=== PATIENT | female | born 1945 | race Caucasian/White ===

== ENCOUNTER 2018-08-25 11:11 | Inpatient (IN) | payer MEDICARE ==
[2018-08-25] MEDS ORDERED: Ondansetron 4 MG/2 ML SDV IVPUSH ONE (12:08)
[2018-08-25] MEDS ORDERED: Sodium Chloride 0.9% 1,000 ML IV SCH ×3 (12:15→18:02)
[2018-08-25] MEDS ORDERED: cefTRIAXone 1 GM in Sodium Chloride 0.9% 50 ML IV ONE ×2 (13:09→13:30)
[2018-08-25] MEDS ORDERED: Sodium Chloride 0.9% 10 ML Syringe FLUSH ONE (13:11)
[2018-08-25] MEDS ORDERED: Sodium Chloride 0.9% 100 ML IV ONE (13:11)
--- NOTE | 2018-08-25 13:12 | EDM.PDOC ---
ED HPI GENERAL MEDICAL PROBLEM - General Chief Complaint: Gastrointestinal Problem Stated Complaint: VOMITING, POST SURGERY Time Seen by Provider: 08/25/18 11:40 Source of Information: Reports: Patient History Limitations: Reports: No Limitations - History of Present Illness INITIAL COMMENTS - FREE TEXT/NARRATIVE: Pt had a hysterectomyu and a rectocoel repair done on August 15. Today she is spiking a fever and she is feeling ill. She is chilling and having some abdomanal pressure. Her bms have been normal. Onset: Gradual, Other (last 2 days. ) Duration: Hour(s): Location: Reports: Abdomen, Pelvis, Generalized Associated Symptoms: Reports: Fever/Chills, Loss of Appetite, Weakness - Related Data Allergies Allergy/AdvReac Type Severity Reaction Status Date / Time No Known Allergies Allergy Verified 08/25/18 13:11 Home Meds: Home Meds Aspirin [[place]ira Chewable] 81 mg PO BEDTIME 06/14/13 [History] Bimatoprost [LUMIGAN 0.03% Ophth Soln] 1 drop EYEBOTH BEDTIME 06/14/13 [History] EPINEPHrine [Epipen 2-Rayray] 1 applic IM ONETIME PRN 06/14/13 [History] Glycopyrrolate 1 mg PO BID 06/14/13 [History] Lisinopril [Prinivil] 10 mg PO DAILY 06/14/13 [History] PARoxetine [Paxil] 40 mg PO DAILY 06/14/13 [History] Ranitidine [Zantac] 150 mg PO BID 06/14/13 [History] atorvaSTATin [Lipitor] 40 mg PO BEDTIME 06/14/13 [History] Cyanocobalamin (Vitamin B12) [Vitamin B12] 2,500 mcg SL DAILY 11/04/14 [History] Zolpidem Tartrate [Ambien] 5 mg PO BEDTIME 11/04/14 [History] Fluocinonide [Lidex 0.05% Crm] 30 gm TOP BID 05/18/16 [History] SUMAtriptan Succinate [Imitrex] 100 mg PO Q12H PRN 05/18/16 [History] Past Medical History Other Dermatologic History: Vitaligo - Past Surgical History GI Surgical History: Reports: Appendectomy, Other (See Below) Other GI Surgeries/Procedures: recent colon prolapse repair Female Surgical History: Reports: Hysterectomy Musculoskeletal Surgical History: Reports: Shoulder Surgery Social & Family History - Tobacco Use Smoking Status *Q: Never Smoker ED ROS GENERAL - Review of Systems Review Of Systems: See Below Constitutional: Reports: Fever, Chills, Decreased Appetite HEENT: Reports: No Symptoms Respiratory: Reports: No Symptoms Cardiovascular: Reports: No Symptoms Endocrine: Reports: No Symptoms GI/Abdominal: Reports: Nausea, Other (mild tenderness, pt is having back pain. ) : Reports: Other ( back pain) Musculoskeletal: Reports: No Symptoms Skin: Reports: No Symptoms Neurological: Reports: No Symptoms ED EXAM, GI/ABD - Physical Exam Exam: See Below Text/Narrative:: pt arrived with a fever and nausea. She had a hysterectomy and rectocoel repair on August 15. Exam Limited By: No Limitations General Appearance: Alert, Anxious, Moderate Distress Ears: Normal TMs Nose: Normal Inspection Throat/Mouth: Normal Inspection Head: Atraumatic Neck: Normal Inspection Respiratory/Chest: No Respiratory Distress Cardiovascular: Regular Rate, Rhythm, Tachycardia GI/Abdominal Exam: Other (mild tenderness no severe pain. ) (Female) Exam: Deferred Rectal (Female) Exam: Deferred, Other (pt has been stooling. ) Back Exam: Normal Inspection Extremities: Normal Inspection Neurological: Alert, Oriented, Normal Cognition Course - Vital Signs Last Recorded V/S: Last Vital Signs Temp 38.4 C H 08/25/18 13:10 Pulse 87 08/25/18 13:10 Resp 17 08/25/18 13:10 BP 144/79 H 08/25/18 13:10 Pulse Ox 93 L 08/25/18 13:10 - Orders/Labs/Meds Orders: Active Orders 24 hr Category Date Time Status CLOSTRIDIUM DIFFICILE BY PCR [RM] Stat Lab 08/25/18 12:10 Ordered CULTURE BLOOD [BC] Urgent Lab 08/25/18 12:40 Received CULTURE BLOOD [BC] Urgent Lab 08/25/18 12:45 Received CULTURE BLOOD [BC] Urgent Lab 08/25/18 14:58 Ordered CULTURE BLOOD [BC] Urgent Lab 08/25/18 14:58 Ordered LACTIC ACID [CHEM] Stat Lab 08/25/18 14:58 Ordered Iopamidol [Isovue-300 (61%)] Med 08/25/18 13:15 Active 100 ml IV . DIRECTED Sodium Chloride 0.9% [Normal Saline] 1,000 ml Med 08/25/18 12:15 Active IV ASDIRECTED Sodium Chloride 0.9% [Normal Saline] 1,000 ml Med 08/25/18 13:15 Active IV ASDIRECTED Blood Culture x2 Reflex Set [OM.PC] Urgent Oth 08/25/18 12:37 Ordered Blood Culture x2 Reflex Set [OM.PC] Urgent Oth 08/25/18 14:58 Ordered Isolation [COMM] Stat Ot 08/25/18 12:11 Ordered Medication Orders Sodium Chloride (Normal Saline) 1,000 mls @ 999 mls/hr IV ASDIRECTED ODILIA Last Admin: 08/25/18 13:53 Dose: 999 mls/hr Sodium Chloride (Normal Saline) 1,000 mls @ 999 mls/hr IV ASDIRECTED [facility] Last Admin: 08/25/18 13:54 Dose: 999 mls/hr Iopamidol (Isovue-300 (61%)) 100 ml IV . DIRECTED [facility] Labs: Laboratory Tests 08/25/18 08/25/18 08/25/18 Range/Units 12:08 12:27 12:27 WBC 16.4 H (4.5-11.0) K/uL RBC 3.80 (3.30-5.50) M/uL Hgb 11.6 L (12.0-15.0) g/dL Hct 35.5 L (36.0-48.0) % MCV 93 (80-98) fL MCH 31 (27-31) pg MCHC 33 (32-36) % Plt Count 323 (150-400) K/uL Neut % (Auto) 82 H (36-66) % Lymph % (Auto) 7 L (24-44) % [place] % (Auto) 10 H (2-6) % Eos % (Auto) 0 L (2-4) % Baso % (Auto) 0 (0-1) % Sodium 138 L (140-148) mmol/L Potassium 3.2 L (3.6-5.2) mmol/L Chloride 102 (100-108) mmol/L Carbon Dioxide 27 (21-32) mmol/L Anion Gap 12.2 (5.0-14.0) mmol/L BUN 12 (7-18) mg/dL Creatinine 0.6 (0.6-1.0) mg/dL Est Cr Clr Drug Dosing 70.59 mL/min Estimated GFR (MDRD) > 60 (>60) Glucose 115 H (74-106) mg/dL Calcium 8.7 (8.5-10.1) mg/dL Total Bilirubin 0.5 (0.2-1.0) mg/dL AST 22 (15-37) U/L ALT 43 (12-78) U/L Alkaline Phosphatase 139 H (46-116) U/L Total Protein 6.4 (6.4-8.2) g/dL Albumin 2.5 L (3.4-5.0) g/dL Globulin 3.9 H (2.3-3.5) g/dL Albumin/Globulin Ratio 0.6 L (1.2-2.2) Urine Color Yellow Urine Appearance Cloudy Urine pH 6.0 (4.5-8.0) Ur Specific [place] 1.005 L (1.008-1.030) Urine Protein 30 H (NEGATIVE) mg/dL Urine Glucose (UA) Normal (NEGATIVE) mg/dL Urine Ketones 50 H (NEGATIVE) mg/dL Urine Occult Blood Moderate (NEGATIVE) Urine Nitrite Positive H (NEGATIVE) Urine Bilirubin Negative (NEGATIVE) Urine Urobilinogen Normal (NORMAL) mg/dL Ur Leukocyte Esterase Large (NEGATIVE) Urine RBC 5-10 H (0-5) Urine WBC Packed H (0-5) Ur Epithelial Cells Rare Amorphous Sediment Not seen Urine Bacteria Many Urine Mucus Rare Meds: Medications Generic Name Dose Route Start Last Admin Trade Name Freq PRN Reason Stop Dose Admin Sodium Chloride 1,000 mls @ 999 mls/hr 08/25/18 12:15 08/25/18 13:53 Normal Saline IV 999 mls/hr ASDIRECTED ODILIA Administration Sodium Chloride 1,000 mls @ 999 mls/hr 08/25/18 13:15 08/25/18 13:54 Normal Saline IV 999 mls/hr ASDIRECTED ODILIA Administration Iopamidol 100 ml 08/25/18 13:15 Isovue-300 (61%) IV . DIRECTED ODILIA Discontinued Medications Generic Name Dose Route Start Last Admin Trade Name Freq PRN Reason Stop Dose Admin Ceftriaxone Sodium 1 gm/ 50 mls @ 100 mls/hr 08/25/18 13:09 Sodium Chloride IV 08/25/18 13:38 ONETIME ONE Sodium Chloride 100 mls @ 3.5 mls/sec 08/25/18 13:11 08/25/18 13:30 Normal Saline IV 08/25/18 13:12 3 mls/sec ONETIME ONE Administration Ceftriaxone Sodium 1 gm/ 50 mls @ 100 mls/hr 08/25/18 13:30 08/25/18 13:42 Sodium Chloride IV 08/25/18 13:59 100 mls/hr ONETIME ONE Administration Ibuprofen 400 mg 08/25/18 14:54 Motrin PO 08/25/18 14:55 ONETIME ONE Ibuprofen 200 mg 08/25/18 14:56 Motrin PO 08/25/18 14:57 ONETIME ONE Iopamidol 100 ml 08/25/18 13:20 08/25/18 13:30 Isovue-300 IV 08/25/18 13:21 100 ml ONETIME ONE Administration Ondansetron HCl 4 mg 08/25/18 12:08 08/25/18 13:52 Zofran IVPUSH 08/25/18 12:09 4 mg ONETIME ONE Administration Sodium Chloride 10 ml 08/25/18 13:11 08/25/18 13:30 Saline Flush FLUSH 08/25/18 13:12 10 ml ONETIME ONE Administration - Re-Assessments/Exams Free Text/Narrative Re-Assessment/Exam: 08/25/18 15:03 urine appears very infected her kidneys show inflamation around the kidneys. Her wbc is elevated. Her urine was cultured. She had a normal chest xray. Departure - Departure Time of Disposition: 15:04 Disposition: Admitted As Inpatient 68 Condition: Fair Clinical Impression: Kidney infection, History of hysterectomy - Discharge Information Referrals: Gordon Rojo DIE OUT WORKER [Primary Care Provider] - Forms: ED Department Discharge Care Plan Goals: admit to Dr shine. - My Orders Last 24 Hours: My Active Orders 08/25/18 12:10 CLOSTRIDIUM DIFFICILE BY PCR [RM] Stat 08/25/18 12:11 Isolation [COMM] Stat 08/25/18 12:15 Sodium Chloride 0.9% [Normal Saline] 1,000 ml IV ASDIRECTED 08/25/18 12:37 Blood Culture x2 Reflex Set [OM.PC] Urgent 08/25/18 12:40 CULTURE BLOOD [BC] Urgent 08/25/18 12:45 CULTURE BLOOD [BC] Urgent 08/25/18 13:15 Iopamidol [Isovue-300 (61%)] 100 ml IV . DIRECTED Sodium Chloride 0.9% [Normal Saline] 1,000 ml IV ASDIRECTED 08/25/18 14:58 CULTURE BLOOD [BC] Urgent CULTURE BLOOD [BC] Urgent LACTIC ACID [CHEM] Stat Blood Culture x2 Reflex Set [OM.PC] Urgent - Assessment/Plan Last 24 Hours: My Active Orders 08/25/18 12:10 CLOSTRIDIUM DIFFICILE BY PCR [RM] Stat 08/25/18 12:11 Isolation [COMM] Stat 08/25/18 12:15 Sodium Chloride 0.9% [Normal Saline] 1,000 ml IV ASDIRECTED 08/25/18 12:37 Blood Culture x2 Reflex Set [OM.PC] Urgent 08/25/18 12:40 CULTURE BLOOD [BC] Urgent 08/25/18 12:45 CULTURE BLOOD [BC] Urgent 08/25/18 13:15 Iopamidol [Isovue-300 (61%)] 100 ml IV . DIRECTED Sodium Chloride 0.9% [Normal Saline] 1,000 ml IV ASDIRECTED 08/25/18 14:58 CULTURE BLOOD [BC] Urgent CULTURE BLOOD [BC] Urgent LACTIC ACID [CHEM] Stat Blood Culture x2 Reflex Set [OM.PC] Urgent
[2018-08-25] MEDS ORDERED: Iopamidol 612 MG/ML 100 ML Bottle IV SCH (13:15)
[2018-08-25] MEDS ORDERED: Iopamidol 500 ML BOTTLE IV ONE (13:20)
--- NOTE | 2018-08-25 13:21 | CRLCR ---
INDICATION: Postop fever COMPARISON: None available. FINDINGS: An erect single view of the chest was obtained at 1244 hours. There is a minimal patchy infiltrate in the right lateral lung base consistent with atelectasis or pneumonia. There is no sign of an associated pleural effusion. The heart is normal in size. The mediastinum is normal in appearance. The osseous structures are normal in appearance for the patient`s age. IMPRESSION: Mild patchy infiltrate in the right lateral lung base, consistent with atelectasis or pneumonia. Dictated by Randy Stein MD @ Aug 25 2018 1:14PM Signed by Dr. Randy Stein @ Aug 25 2018 1:19PM
--- NOTE | 2018-08-25 14:13 | CRLCT ---
INDICATION: Recent hysterectomy. Lower abdominal pressure. TECHNIQUE: A CT volumetric acquisition was performed of the abdomen and pelvis during intravenous infusion of 100 cc of Isovue-300 nonionic intravenous contrast. FINDINGS: CT images demonstrate peripheral pleural and parenchymal scarring within the lateral basal segment right lower lobe. There is no evidence of pleural or pericardial fluid. The patient`s liver appears normal in size. There is a small 6 mm cyst within the left hepatic lobe. The spleen has uniform enhancement. There is no evidence of mass or inflammation within the pancreas. Gallbladder and bile ducts are normal size. The adrenal glands have normal morphology. Atherosclerotic changes are noted throughout the abdominal aorta and iliac arteries but there is no evidence of aneurysm. The kidneys show a mottled enhancement pattern suggesting possible pyelonephritis. There is a small benign cyst within the lower pole left kidney. The patient`s small intestine and colon appear normal. There is no evidence of hemorrhage within the lower pelvis. The patient has had a supracervical hysterectomy. Urinary bladder appears normal. IMPRESSION: Mottled enhancement pattern within the kidneys which may indicate pyelonephritis. No evidence of hemorrhage within the hysterectomy bed. Dictated by Elio Oliver MD @ 08/25/2018 2:12:42 PM Please note that all CT scans at this facility use dose modulation, iterative reconstruction, and/or weight-based dosing when appropriate to reduce radiation dose to as low as reasonably achievable. Dictated by: Elio Oliver MD @ 08/25/2018 14:12:51 (Electronically Signed)
[2018-08-25] MEDS ORDERED: Ibuprofen 400 MG Tab PO ONE (14:54)
[2018-08-25] MEDS ORDERED: Ibuprofen 200 MG Tab PO ONE (14:56)
--- NOTE | 2018-08-25 17:14 | PCM.HP ---
H&P History of Present Illness - General Date of Service: 08/25/18 Admit Problem/Dx: Admission Diagnosis/Problem Admission Diagnosis/Problem Pyelonephritis Source of Information: Patient, Family, Provider History Limitations: Reports: No Limitations - History of Present Illness Initial Comments - Free Text/Narative: CC: I kept puking and my lower back hurt HPI: Bailey presents to the emergency room today with 5 days of intermittent nausea and vomiting as well as lower back pain. She reports having a hysterectomy completed about 10 days ago. The first 5 days went okay and then she started to develop nausea with episodes of vomiting mostly in the morning. Initially did better in the afternoon. Symptoms have progressed over the past 4 days with more frequent episodes of nausea and more vomiting. She has measured temperatures as high as 101 at home prior to today were was 103. She describes moderate achy lower back pain that started yesterday and worsened into this morning. She has been taking acetaminophen and ibuprofen with minor improvements in this pain. She has not have any significant pain remaining from her hysterectomy surgery. She noticed one episode of very mild dysuria but has not had increased frequency or urgency. She's had some episodes of shaking chills over the past couple of days but a more intense episode this morning and one in the emergency room as well. She has noticed a change in the odor of her urine. Workup in the emergency room was suggestive of bilateral pyelonephritis with a significantly abnormal urinalysis and abnormal enhancement of both kidneys on the CAT scan. She has received ceftriaxone. 2 sets of blood cultures and a urine culture have been set up. She has received 2 L of IV fluids. She will be admitted for further management. - Related Data Allergies/Adverse Reactions: Allergies Allergy/AdvReac Type Severity Reaction Status Date / Time No Known Allergies Allergy Verified 08/25/18 13:11 Home Medications: Home Meds Aspirin [[place]ira Chewable] 81 mg PO BEDTIME 06/14/13 [History] Bimatoprost [LUMIGAN 0.03% Ophth Soln] 1 drop EYEBOTH BEDTIME 06/14/13 [History] EPINEPHrine [Epipen 2-Rayray] 1 applic IM ONETIME PRN 06/14/13 [History] Glycopyrrolate 1 mg PO BID 06/14/13 [History] Lisinopril [Prinivil] 10 mg PO DAILY 06/14/13 [History] Ranitidine [Zantac] 150 mg PO BID 06/14/13 [History] atorvaSTATin [Lipitor] 40 mg PO BEDTIME 06/14/13 [History] Cyanocobalamin (Vitamin B12) [Vitamin B12] 2,500 mcg SL DAILY 11/04/14 [History] Zolpidem Tartrate [Ambien] 5 mg PO BEDTIME 11/04/14 [History] Fluocinonide [Lidex 0.05% Crm] 30 gm TOP BID 05/18/16 [History] SUMAtriptan Succinate [Imitrex] 100 mg PO Q12H PRN 05/18/16 [History] PARoxetine [Paxil] 40 mg PO DAILY 08/25/18 [History] Past Medical History Other Dermatologic History: Vitaligo - Past Surgical History GI Surgical History: Reports: Appendectomy, Other (See Below) Other GI Surgeries/Procedures: recent colon prolapse repair Female Surgical History: Reports: Hysterectomy Musculoskeletal Surgical History: Reports: Shoulder Surgery Social & Family History - Family History Respiratory: Denies: COPD - Tobacco Use Smoking Status *Q: Never Smoker - Alcohol Use Alcohol Use History: No H&P Review of Systems - Review of Systems: Review Of Systems: See Below Free Text/Narrative: A complete 12 point review of systems was obtained. Pertinent positives and negatives are noted in the history of present illness. All other systems were reviewed and were negative except as noted. Exam - Exam Exam: See Below - Vital Signs Vital Signs: Last Vital Signs Temp 38.4 C H 08/25/18 13:10 Pulse 87 08/25/18 13:10 Resp 17 08/25/18 13:10 BP 144/79 H 08/25/18 13:10 Pulse Ox 93 L 08/25/18 13:10 Weight: 56.9 kg - Exam Quality Assessment: No: Supplemental Oxygen General: Alert, Oriented, Cooperative. No: Mild Distress HEENT: Conjunctiva Clear, Mucosa Moist & [place]. No: Scleral Icterus Neck: Supple, Trachea Midline. No: Lymphadenopathy Lungs: Clear to Auscultation, Normal Respiratory Effort Cardiovascular: Regular Rate, Regular Rhythm GI/Abdominal Exam: Normal Bowel Sounds, Soft, Non-Tender, No Distention Extremities: No Pedal Edema. No: Increased Warmth Peripheral Pulses: 2+: Dorsalis Pedis (L), Dorsalis Pedis (R) Skin: Warm, Dry Neuro Extensive - Mental Status: Alert, Oriented x3, Nl Response to Commands Neuro Extensive - Motor, Sensory, Reflexes: No: Dysarthria, Abnormal Motor, Tremor Psychiatric: Alert, Normal Affect - Patient Data Lab Results Last 24 hrs: Laboratory Results - last 24 hr 08/25/18 08/25/18 08/25/18 Range/Units 12:08 12:27 12:27 WBC 16.4 H (4.5-11.0) K/uL RBC 3.80 (3.30-5.50) M/uL Hgb 11.6 L (12.0-15.0) g/dL Hct 35.5 L (36.0-48.0) % MCV 93 (80-98) fL MCH 31 (27-31) pg MCHC 33 (32-36) % Plt Count 323 (150-400) K/uL Neut % (Auto) 82 H (36-66) % Lymph % (Auto) 7 L (24-44) % [place] % (Auto) 10 H (2-6) % Eos % (Auto) 0 L (2-4) % Baso % (Auto) 0 (0-1) % Sodium 138 L (140-148) mmol/L Potassium 3.2 L (3.6-5.2) mmol/L Chloride 102 (100-108) mmol/L Carbon Dioxide 27 (21-32) mmol/L Anion Gap 12.2 (5.0-14.0) mmol/L BUN 12 (7-18) mg/dL Creatinine 0.6 (0.6-1.0) mg/dL Est Cr Clr Drug Dosing 70.59 mL/min Estimated GFR (MDRD) > 60 (>60) Glucose 115 H (74-106) mg/dL Lactic Acid (0.4-2.0) mmol/L Calcium 8.7 (8.5-10.1) mg/dL Total Bilirubin 0.5 (0.2-1.0) mg/dL AST 22 (15-37) U/L ALT 43 (12-78) U/L Alkaline Phosphatase 139 H (46-116) U/L Total Protein 6.4 (6.4-8.2) g/dL Albumin 2.5 L (3.4-5.0) g/dL Globulin 3.9 H (2.3-3.5) g/dL Albumin/Globulin Ratio 0.6 L (1.2-2.2) Urine Color Yellow Urine Appearance Cloudy Urine pH 6.0 (4.5-8.0) Ur Specific [place] 1.005 L (1.008-1.030) Urine Protein 30 H (NEGATIVE) mg/dL Urine Glucose (UA) Normal (NEGATIVE) mg/dL Urine Ketones 50 H (NEGATIVE) mg/dL Urine Occult Blood Moderate (NEGATIVE) Urine Nitrite Positive H (NEGATIVE) Urine Bilirubin Negative (NEGATIVE) Urine Urobilinogen Normal (NORMAL) mg/dL Ur Leukocyte Esterase Large (NEGATIVE) Urine RBC 5-10 H (0-5) Urine WBC Packed H (0-5) Ur Epithelial Cells Rare Amorphous Sediment Not seen Urine Bacteria Many Urine Mucus Rare 08/25/18 Range/Units 14:58 WBC (4.5-11.0) K/uL RBC (3.30-5.50) M/uL Hgb (12.0-15.0) g/dL Hct (36.0-48.0) % MCV (80-98) fL MCH (27-31) pg MCHC (32-36) % Plt Count (150-400) K/uL Neut % (Auto) (36-66) % Lymph % (Auto) (24-44) % [place] % (Auto) (2-6) % Eos % (Auto) (2-4) % Baso % (Auto) (0-1) % Sodium (140-148) mmol/L Potassium (3.6-5.2) mmol/L Chloride (100-108) mmol/L Carbon Dioxide (21-32) mmol/L Anion Gap (5.0-14.0) mmol/L BUN (7-18) mg/dL Creatinine (0.6-1.0) mg/dL Est Cr Clr Drug Dosing mL/min Estimated GFR (MDRD) (>60) Glucose (74-106) mg/dL Lactic Acid 1.5 (0.4-2.0) mmol/L Calcium (8.5-10.1) mg/dL Total Bilirubin (0.2-1.0) mg/dL AST (15-37) U/L ALT (12-78) U/L Alkaline Phosphatase (46-116) U/L Total Protein (6.4-8.2) g/dL Albumin (3.4-5.0) g/dL Globulin (2.3-3.5) g/dL Albumin/Globulin Ratio (1.2-2.2) Urine Color Urine Appearance Urine pH (4.5-8.0) Ur Specific [place] (1.008-1.030) Urine Protein (NEGATIVE) mg/dL Urine Glucose (UA) (NEGATIVE) mg/dL Urine Ketones (NEGATIVE) mg/dL Urine Occult Blood (NEGATIVE) Urine Nitrite (NEGATIVE) Urine Bilirubin (NEGATIVE) Urine Urobilinogen (NORMAL) mg/dL Ur Leukocyte Esterase (NEGATIVE) Urine RBC (0-5) Urine WBC (0-5) Ur Epithelial Cells Amorphous Sediment Urine Bacteria Urine Mucus Result Diagrams: 08/25/18 12:27 08/25/18 12:27 Imaging Impressions Last 24 hrs: CT abdomen and pelvis - images personally reviewed - s/p supracevical hysterectomy. Mottled enhancement of kidneys concerning for pyelonephritis bilaterally. No free air, abscess or ascites. *Q Meaningful Use (ADM) - VTE Risk Assess *Q Each Risk Factor Represents 1 Point: None Total Score 1 Point Risk Factors: 0 Each Risk Factor Represents 2 Points: Age 60 - 74 Years Total Score 2 Point Risk Factors: 2 Each Risk Factor Represents 3 Points: None Total Score 3 Point Risk Factors: 0 Each Risk Factor Represents 5 Points: None Total Score 5 Point Risk Factors: 0 Venous Thromboembolism Risk Factor Score *Q: 2 - Problem List (1) Pyelonephritis SNOMED Code(s): 35756041 ICD Code: N12 - TUBULO-INTERSTITIAL NEPHRITIS, NOT SPCF ACUTE OR CHRONIC Status: Acute Current Visit: Yes Problem Details: bilateral pyelo (2) History of hysterectomy SNOMED Code(s): 471679730, 944373181 ICD Code: Z90.710 - ACQUIRED ABSENCE OF BOTH CERVIX AND UTERUS Status: Chronic Current Visit: Yes Problem List Initiated/Reviewed/Updated: Yes Orders Last 24hrs: Active Orders 24 hr Category Date Time Status Patient Status Manage Transfer [TRANSFER] Routine ADT 08/25/18 17:04 Ordered CLOSTRIDIUM DIFFICILE BY PCR [] Stat Lab 08/25/18 12:10 Ordered CULTURE BLOOD [BC] Urgent Lab 08/25/18 12:40 Received CULTURE BLOOD [BC] Urgent Lab 08/25/18 12:45 Received CULTURE BLOOD [BC] Urgent Lab 08/25/18 15:00 Received CULTURE BLOOD [BC] Urgent Lab 08/25/18 15:10 Received CULTURE URINE [RM] Stat Lab 08/25/18 16:40 Ordered Iopamidol [Isovue-300 (61%)] Med 08/25/18 13:15 Active 100 ml IV . DIRECTED Sodium Chloride 0.9% [Normal Saline] 1,000 ml Med 08/25/18 12:15 Active IV ASDIRECTED Sodium Chloride 0.9% [Normal Saline] 1,000 ml Med 08/25/18 13:15 Active IV ASDIRECTED Blood Culture x2 Reflex Set [OM.PC] Urgent Oth 08/25/18 12:37 Ordered Blood Culture x2 Reflex Set [OM.PC] Urgent Oth 08/25/18 14:58 Ordered Isolation [COMM] Stat Oth 08/25/18 12:11 Ordered Resuscitation Status Routine Resus Stat 08/25/18 17:06 Ordered Medication Orders Sodium Chloride (Normal Saline) 1,000 mls @ 999 mls/hr IV ASDIRECTED [facility] Last Admin: 08/25/18 13:53 Dose: 999 mls/hr Sodium Chloride (Normal Saline) 1,000 mls @ 999 mls/hr IV ASDIRECTED [facility] Last Admin: 08/25/18 13:54 Dose: 999 mls/hr Iopamidol (Isovue-300 (61%)) 100 ml IV . DIRECTED [facility] Assessment/Plan Comment:: ASSESSMENT AND PLAN - Bilateral pyelonephritis - no evidence for sepsis at this time. Patient did have a catheter in her hospital stay and had 3 episodes of straight catheterization after surgery for residual urine in the bladder. She has not used a straight catheter in more than a week. Urinalysis suggestive of infection and CT scan suggestive of bilateral pyelonephritis. -Continue ceftriaxone -Follow-up cultures -Symptomatically management Status post hysterectomy - no obvious surgical complications and seems to be doing well from a surgical standpoint. Maintenance issues - - DVT prophylaxis - mechanical - GI prophylaxis - not indicated - Nutrition - regular - [place] catheter - not indicated CODE STATUS - full code Admission justification - This patient will be admitted for inpatient services and is medically appropriate meeting medical necessity for inpatient admission as outlined in my documentation. I reasonably expect the patient will require inpatient services that span a period time over 2 midnights. I reasonably expect this patient to be discharged or transferred within 96 hours [address] admission to the [facility]. Disposition - I would anticipate discharge home after the hospital stay Primary care physician - Gordon Chavez M.D.
[2018-08-25] MEDS ORDERED: Potassium Chloride 20 MEQ Tab.ER PO ONE (17:43)
[2018-08-25] MEDS ORDERED: Ondansetron 4 MG Tab.DIS PO PRN (18:02)
[2018-08-25] MEDS ORDERED: Magnesium Hydroxide 400 MG/5 ML Susp 30 ML Cup PO PRN (18:02)
[2018-08-25] MEDS: Ondansetron 4 MG/2 ML SDV IV PRN (18:29)
[2018-08-25] MEDS ORDERED: LORazepam 2 MG/ML SDV IVPUSH PRN (19:13)
[2018-08-25] MEDS: atorvaSTATin 20 MG Tab PO SCH (20:14)
[2018-08-25] MEDS: Acetaminophen 325 MG Tab PO PRN (20:14)
[2018-08-25] MEDS ORDERED: Potassium Chloride 20 MEQ Tab.ER ONE (20:27)
[2018-08-25] MEDS ORDERED: Latanoprost 0.005% Ophth Soln 2.5 ML Bottle EYEBOTH SCH (21:00)
[2018-08-25] MEDS: Aspirin 81 MG Tab.Chew PO SCH (21:33)
[2018-08-25] MEDS: Zolpidem 5 MG Tab PO SCH (22:03)
[2018-08-26] MEDS: Ibuprofen 600 MG Tab PO PRN ×3 (04:17→20:39)
[2018-08-26] MEDS ORDERED: Pantoprazole 40 MG Delayed-Release Granules 1 Packet PO SCH (07:30)
[2018-08-26] MEDS: Cyanocobalamin (Vitamin B12) 1,000 MCG Tab PO SCH (09:28)
[2018-08-26] MEDS: Lisinopril 10 MG Tab PO SCH (09:29)
[2018-08-26] MEDS: Pantoprazole 40 MG Delayed-Release Granules 1 Packet PO SCH (09:29)
[2018-08-26] MEDS ORDERED: Potassium Chloride 20 MEQ Tab.ER PO ONE (09:30)
[2018-08-26] MEDS: Acetaminophen 325 MG Tab PO PRN ×2 (09:37→15:17)
--- NOTE | 2018-08-26 10:13 | PCM.PN ---
- General Info Date of Service: 08/26/18 Subjective Update: There were no acute events overnight. She did have a low-grade fever. Still having some lower back pain and this is stable compared to yesterday. Nausea is a little better. Urine culture and all of her blood cultures are growing gram- negative rods with identification pending. Blood pressure and heart rate have been stable. No bowel movement. Functional Status: Reports: Pain Controlled, Tolerating Diet - Review of Systems General: Reports: Fever Musculoskeletal: Reports: Back Pain - Patient Data Vitals - Most Recent: Last Vital Signs Temp 35.7 C 08/26/18 08:10 Pulse 80 08/26/18 08:10 Resp 16 08/26/18 08:10 BP 148/72 H 08/26/18 09:29 Pulse Ox 93 L 08/26/18 08:10 Weight - Most Recent: 59.931 kg I&O - Last 24 Hours: Intake & Output 08/25/18 08/26/18 08/26/18 22:59 06:59 14:59 Intake Total 500 Output Total 900 Balance -400 Lab Results Last 24 Hours: Laboratory Results - last 24 hr 08/25/18 08/25/18 08/25/18 Range/Units 12:08 12:27 12:27 WBC 16.4 H (4.5-11.0) K/uL RBC 3.80 (3.30-5.50) M/uL Hgb 11.6 L (12.0-15.0) g/dL Hct 35.5 L (36.0-48.0) % MCV 93 (80-98) fL MCH 31 (27-31) pg MCHC 33 (32-36) % Plt Count 323 (150-400) K/uL Neut % (Auto) 82 H (36-66) % Lymph % (Auto) 7 L (24-44) % Luna % (Auto) 10 H (2-6) % Eos % (Auto) 0 L (2-4) % Baso % (Auto) 0 (0-1) % Sodium 138 L (140-148) mmol/L Potassium 3.2 L (3.6-5.2) mmol/L Chloride 102 (100-108) mmol/L Carbon Dioxide 27 (21-32) mmol/L Anion Gap 12.2 (5.0-14.0) mmol/L BUN 12 (7-18) mg/dL Creatinine 0.6 (0.6-1.0) mg/dL Est Cr Clr Drug Dosing 70.59 mL/min Estimated GFR (MDRD) > 60 (>60) Glucose 115 H (74-106) mg/dL Lactic Acid (0.4-2.0) mmol/L Calcium 8.7 (8.5-10.1) mg/dL Total Bilirubin 0.5 (0.2-1.0) mg/dL AST 22 (15-37) U/L ALT 43 (12-78) U/L Alkaline Phosphatase 139 H (46-116) U/L Total Protein 6.4 (6.4-8.2) g/dL Albumin 2.5 L (3.4-5.0) g/dL Globulin 3.9 H (2.3-3.5) g/dL Albumin/Globulin Ratio 0.6 L (1.2-2.2) Urine Color Yellow Urine Appearance Cloudy Urine pH 6.0 (4.5-8.0) Ur Specific [place] 1.005 L (1.008-1.030) Urine Protein 30 H (NEGATIVE) mg/dL Urine Glucose (UA) Normal (NEGATIVE) mg/dL Urine Ketones 50 H (NEGATIVE) mg/dL Urine Occult Blood Moderate (NEGATIVE) Urine Nitrite Positive H (NEGATIVE) Urine Bilirubin Negative (NEGATIVE) Urine Urobilinogen Normal (NORMAL) mg/dL Ur Leukocyte Esterase Large (NEGATIVE) Urine RBC 5-10 H (0-5) Urine WBC Packed H (0-5) Ur Epithelial Cells Rare Amorphous Sediment Not seen Urine Bacteria Many Urine Mucus Rare 08/25/18 08/26/18 08/26/18 Range/Units 14:58 06:04 06:04 WBC 15.7 H (4.5-11.0) K/uL RBC 3.40 (3.30-5.50) M/uL Hgb 10.5 L (12.0-15.0) g/dL Hct 32.2 L (36.0-48.0) % MCV 95 (80-98) fL MCH 31 (27-31) pg MCHC 33 (32-36) % Plt Count 324 (150-400) K/uL Neut % (Auto) (36-66) % Lymph % (Auto) (24-44) % Luna % (Auto) (2-6) % Eos % (Auto) (2-4) % Baso % (Auto) (0-1) % Sodium 141 (140-148) mmol/L Potassium 3.4 L (3.6-5.2) mmol/L Chloride 108 (100-108) mmol/L Carbon Dioxide 24 (21-32) mmol/L Anion Gap 12.4 (5.0-14.0) mmol/L BUN 8 (7-18) mg/dL Creatinine 0.6 (0.6-1.0) mg/dL Est Cr Clr Drug Dosing 69.00 mL/min Estimated GFR (MDRD) > 60 (>60) Glucose 116 H (74-106) mg/dL Lactic Acid 1.5 (0.4-2.0) mmol/L Calcium 8.4 L (8.5-10.1) mg/dL Total Bilirubin (0.2-1.0) mg/dL AST (15-37) U/L ALT (12-78) U/L Alkaline Phosphatase (46-116) U/L Total Protein (6.4-8.2) g/dL Albumin (3.4-5.0) g/dL Globulin (2.3-3.5) g/dL Albumin/Globulin Ratio (1.2-2.2) Urine Color Urine Appearance Urine pH (4.5-8.0) Ur Specific [place] (1.008-1.030) Urine Protein (NEGATIVE) mg/dL Urine Glucose (UA) (NEGATIVE) mg/dL Urine Ketones (NEGATIVE) mg/dL Urine Occult Blood (NEGATIVE) Urine Nitrite (NEGATIVE) Urine Bilirubin (NEGATIVE) Urine Urobilinogen (NORMAL) mg/dL Ur Leukocyte Esterase (NEGATIVE) Urine RBC (0-5) Urine WBC (0-5) Ur Epithelial Cells Amorphous Sediment Urine Bacteria Urine Mucus Mick Results Last 24 Hours: Microbiology 08/25/18 17:32 Urine Culture - Preliminary Urine, Clean Catch 08/25/18 15:10 Aerobic Blood Culture - Preliminary Blood - Arm, Right Gram Negative Rods Anaerobic Blood Culture - Preliminary Gram Negative Rods 08/25/18 15:00 Aerobic Blood Culture - Preliminary Blood - Arm, Right Gram Negative Rods Anaerobic Blood Culture - Preliminary Gram Negative Rods 08/25/18 12:45 Aerobic Blood Culture - Preliminary Blood - Arm, Right Gram Negative Rods 08/25/18 12:40 Aerobic Blood Culture - Preliminary Blood - Arm, Right Gram Negative Rods Med Orders - Current: Current Medications Acetaminophen (Tylenol) 650 mg PO Q4H PRN PRN Reason: Pain (Mild 1-3)/fever Last Admin: 08/26/18 09:37 Dose: 650 mg Aspirin (Aspirin) 81 mg PO BEDTIME [facility] Last Admin: 08/25/18 21:33 Dose: Not Given Atorvastatin Calcium (Lipitor) 40 mg PO BEDTIME [facility] Last Admin: 08/25/18 20:14 Dose: 40 mg Cyanocobalamin (Vitamin B12) 2,500 mcg PO DAILY [facility] Last Admin: 08/26/18 09:28 Dose: 2,500 mcg Ceftriaxone Sodium 1 gm/ (Sodium Chloride) 50 mls @ 100 mls/hr IV Q24H [facility] Sodium Chloride (Normal Saline) 1,000 mls @ 100 mls/hr IV ASDIRECTED [facility] Last Admin: 08/25/18 18:32 Dose: 100 mls/hr Ibuprofen (Motrin) 600 mg PO Q6H PRN PRN Reason: Pain/Fever Last Admin: 08/26/18 04:17 Dose: 600 mg Latanoprost (Xalatan 0.005% Ophth Soln) 0 ml EYEBOTH BEDTIME [facility] Lisinopril (Prinivil) 10 mg PO DAILY [facility] Last Admin: 08/26/18 09:29 Dose: 10 mg Lorazepam (Ativan) 0.5 mg IVPUSH Q6H PRN PRN Reason: Nausea/Vomiting Last Admin: 08/25/18 19:51 Dose: 0.5 mg Magnesium Hydroxide (Milk Of Magnesia) 30 ml PO Q12H PRN PRN Reason: Constipation Non-Formulary Medication (Paroxetine [Paxil]) 40 mg PO DAILY [facility] Ondansetron HCl (Zofran Odt) 4 mg PO Q6H PRN PRN Reason: Nausea able to take PO Ondansetron HCl (Zofran) 4 mg IV Q6H PRN PRN Reason: Nausea/Vomiting Last Admin: 08/25/18 18:29 Dose: 4 mg Pantoprazole Sodium (Protonix Granules) 40 mg PO ACBREAKFAST [facility] Last Admin: 08/26/18 09:29 Dose: 40 mg Senna/Docusate Sodium (Senna Plus) 1 tab PO BID PRN PRN Reason: Constipation Last Admin: 08/26/18 09:37 Dose: 1 tab Zolpidem Tartrate (Ambien) 5 mg PO BEDTIME [facility] Last Admin: 08/25/18 22:03 Dose: 5 mg Discontinued Medications Sodium Chloride (Normal Saline) 1,000 mls @ 999 mls/hr IV ASDIRECTED [facility] Last Admin: 08/25/18 13:53 Dose: 999 mls/hr Sodium Chloride (Normal Saline) 1,000 mls @ 999 mls/hr IV ASDIRECTED [facility] Last Admin: 08/25/18 13:54 Dose: 999 mls/hr Ceftriaxone Sodium 1 gm/ (Sodium Chloride) 50 mls @ 100 mls/hr IV ONETIME ONE Stop: 08/25/18 13:38 Sodium Chloride (Normal Saline) 100 mls @ 3.5 mls/sec IV ONETIME ONE Stop: 08/25/18 13:12 Last Admin: 08/25/18 13:30 Dose: 3 mls/sec Ceftriaxone Sodium 1 gm/ (Sodium Chloride) 50 mls @ 100 mls/hr IV ONETIME ONE Stop: 08/25/18 13:59 Last Admin: 08/25/18 13:42 Dose: 100 mls/hr Ibuprofen (Motrin) 400 mg PO ONETIME ONE Stop: 08/25/18 14:55 Last Admin: 08/25/18 14:59 Dose: 400 mg Ibuprofen (Motrin) 200 mg PO ONETIME ONE Stop: 08/25/18 14:57 Last Admin: 08/25/18 15:03 Dose: 200 mg Iopamidol (Isovue-300 (61%)) 100 ml IV . DIRECTED [facility] Iopamidol (Isovue-300) 100 ml IV ONETIME ONE Stop: 08/25/18 13:21 Last Admin: 08/25/18 13:30 Dose: 100 ml Latanoprost (Xalatan 0.005% Ophth Soln) 0 ml EYEBOTH BEDTIME [facility] Last Admin: 08/25/18 22:02 Dose: 1 drop Ondansetron HCl (Zofran) 4 mg IVPUSH ONETIME ONE Stop: 08/25/18 12:09 Last Admin: 08/25/18 13:52 Dose: 4 mg Pantoprazole Sodium (Protonix Granules) 20 mg PO ACBREAKFAST [facility] Potassium Chloride (Klor-Con M20) 40 meq PO ONETIME ONE Stop: 08/25/18 17:44 Last Admin: 08/25/18 20:46 Dose: 40 meq Potassium Chloride (Klor-Con M20) Confirm Administered Dose 40 meq .ROUTE .STK- MED ONE Stop: 08/25/18 20:28 Last Admin: 08/25/18 20:46 Dose: Not Given Potassium Chloride (Klor-Con M20) 40 meq PO ONETIME ONE Stop: 08/26/18 09:31 Ranitidine HCl (Zantac) 150 mg PO BID [facility] Last Admin: 08/25/18 21:33 Dose: Not Given Sodium Chloride (Saline Flush) 10 ml FLUSH ONETIME ONE Stop: 08/25/18 13:12 Last Admin: 08/25/18 13:30 Dose: 10 ml - Exam Quality Assessment: No: Supplemental Oxygen General: Alert, Oriented, Cooperative, No Acute Distress Lungs: Clear to Auscultation, Normal Respiratory Effort Cardiovascular: Regular Rate, Regular Rhythm GI/Abdominal Exam: Soft, No Distention Extremities: No Pedal Edema Psy/Mental Status: Alert, Normal Affect - Problem List & Annotations (1) Pyelonephritis SNOMED Code(s): 69319611 Code(s): N12 - TUBULO-INTERSTITIAL NEPHRITIS, NOT SPCF ACUTE OR CHRONIC Status: Acute Current Visit: Yes Annotation/Comment:: bilateral pyelo (2) History of hysterectomy SNOMED Code(s): 883274009, 471527895 Code(s): Z90.710 - ACQUIRED ABSENCE OF BOTH CERVIX AND UTERUS Status: Chronic Current Visit: Yes - Problem List Review Problem List Initiated/Reviewed/Updated: Yes - My Orders Last 24 Hours: My Active Orders 08/25/18 17:06 Resuscitation Status Routine 08/25/18 17:32 CULTURE URINE [RM] Stat 08/25/18 18:02 Patient Status [ADT] Routine Antiembolic Devices [RC] .Routine Intake and Output [RC] QSHIFT Notify Provider Vital Signs [RC] ASDIRECTED Oxygen Therapy [RC] PRN Up ad Cee [RC] ASDIRECTED VTE/DVT Education [RC] Per Unit Routine Vital Signs [RC] Q4H Acetaminophen [Tylenol] 650 mg PO Q4H PRN Docusate Sodium/Sennosides [Senna Plus] 1 tab PO BID PRN Ibuprofen [Motrin] 600 mg PO Q6H PRN Magnesium Hydroxide [Milk of Magnesia] 30 ml PO Q12H PRN Ondansetron [Zofran ODT] 4 mg PO Q6H PRN Ondansetron [Zofran] 4 mg IV Q6H PRN Sodium Chloride 0.9% [Normal Saline] 1,000 ml IV ASDIRECTED Sequential Compression Device [OM.PC] Routine 08/25/18 19:13 LORazepam [Ativan] 0.5 mg IVPUSH Q6H PRN 08/25/18 21:00 Aspirin 81 mg PO BEDTIME Zolpidem [Ambien] 5 mg PO BEDTIME atorvaSTATin [Lipitor] 40 mg PO BEDTIME 08/25/18 Dinner Regular Diet [DIET] 08/26/18 08:13 Pantoprazole [ProTONIX Granules] 40 mg PO ACBREAKFAST 08/26/18 09:00 Cyanocobalamin (Vitamin B12) [Vitamin B12] 2,500 mcg PO DAILY Lisinopril [Prinivil] 10 mg PO DAILY 08/26/18 10:15 PARoxetine [Paxil] 40 mg PO DAILY 08/26/18 13:00 cefTRIAXone [Rocephin] 1 gm Sodium Chloride 0.9% [Normal Saline] 50 ml IV Q24H 08/26/18 21:00 Latanoprost [Xalatan 0.005% Ophth Soln] 0 ml EYEBOTH BEDTIME 08/27/18 05:00 BASIC METABOLIC PANEL,BMP [CHEM] Timed CBC W/O DIFF,HEMOGRAM [HEME] Timed (1) - Plan Plan:: ASSESSMENT AND PLAN - Bilateral pyelonephritis - no evidence for sepsis at this time. Clinically doing better. Urine culture and blood cultures are growing gram-negative rods but no identification as of yet. -Continue ceftriaxone -Follow-up cultures -Symptomatically management Status post hysterectomy - no obvious surgical complications and seems to be doing well from a surgical standpoint. Maintenance issues - - DVT prophylaxis - mechanical - GI prophylaxis - not indicated - Nutrition - regular Disposition - I would anticipate discharge home after the hospital stay Primary care physician - Gordon Chavez M.D.
[2018-08-26] MEDS: PARoxetine 20 MG Tab PO SCH (12:26)
[2018-08-26] MEDS ORDERED: cefTRIAXone 1 GM in Sodium Chloride 0.9% 50 ML IV SCH (13:00)
[2018-08-26] MEDS: Ondansetron 4 MG/2 ML SDV IV PRN (17:34)
[2018-08-26] MEDS: Zolpidem 5 MG Tab PO SCH (20:34)
[2018-08-26] MEDS: atorvaSTATin 20 MG Tab PO SCH (20:35)
[2018-08-26] MEDS: Aspirin 81 MG Tab.Chew PO SCH (20:35)
[2018-08-26] MEDS: Latanoprost 0.005% Ophth Soln 2.5 ML Bottle EYEBOTH SCH (20:35)
[2018-08-27] MEDS: Ibuprofen 600 MG Tab PO PRN ×3 (04:23→21:52)
[2018-08-27] MEDS: PARoxetine 20 MG Tab PO SCH (09:25)
[2018-08-27] MEDS: Pantoprazole 40 MG Delayed-Release Granules 1 Packet PO SCH (09:25)
[2018-08-27] MEDS: Cyanocobalamin (Vitamin B12) 1,000 MCG Tab PO SCH (09:25)
[2018-08-27] MEDS: Lisinopril 10 MG Tab PO SCH (09:26)
[2018-08-27] MEDS: Ciprofloxacin 500 MG Tab PO SCH ×2 (10:47→20:44)
--- NOTE | 2018-08-27 11:38 | PCM.PN ---
- General Info Date of Service: 08/27/18 Subjective Update: There were no acute events overnight. Low-grade temperature elevations but no fevers. Having a little bit more abdominal pain today than yesterday. Still has dysuria and urinary frequency. Urine culture grew out an Escherichia coli which wasn't ESBL. Antibiotics changed to ciprofloxacin this morning. Appetite is better and no nausea or vomiting. Feels a little weak but strength is better today. Functional Status: Reports: Pain Controlled, Tolerating Diet - Review of Systems General: Denies: Fever Gastrointestinal: Reports: Abdominal Pain Genitourinary: Reports: Frequency, Burning - Patient Data Vitals - Most Recent: Last Vital Signs Temp 36.1 C 08/27/18 10:51 Pulse 79 08/27/18 10:51 Resp 16 08/27/18 10:51 BP 147/75 H 08/27/18 10:51 Pulse Ox 98 08/27/18 10:51 Weight - Most Recent: 59.931 kg I&O - Last 24 Hours: Intake & Output 08/26/18 08/27/18 08/27/18 22:59 06:59 14:59 Intake Total 900 120 Output Total 200 1400 500 Balance 700 -1280 -500 Lab Results Last 24 Hours: Laboratory Results - last 24 hr 08/27/18 08/27/18 Range/Units 04:15 04:15 WBC 11.6 H (4.5-11.0) K/uL RBC 3.60 (3.30-5.50) M/uL Hgb 11.0 L (12.0-15.0) g/dL Hct 34.3 L (36.0-48.0) % MCV 95 (80-98) fL MCH 31 (27-31) pg MCHC 32 (32-36) % Plt Count 374 (150-400) K/uL Sodium 142 (140-148) mmol/L Potassium 3.8 (3.6-5.2) mmol/L Chloride 108 (100-108) mmol/L Carbon Dioxide 24 (21-32) mmol/L Anion Gap 10.0 (5.0-14.0) mmol/L BUN 8 (7-18) mg/dL Creatinine 0.6 (0.6-1.0) mg/dL Est Cr Clr Drug Dosing 69.00 mL/min Estimated GFR (MDRD) > 60 (>60) Glucose 112 H (74-106) mg/dL Calcium 8.4 L (8.5-10.1) mg/dL Mick Results Last 24 Hours: Microbiology 08/25/18 15:10 Aerobic Blood Culture - Preliminary Blood - Arm, Right Gram Negative Rods Anaerobic Blood Culture - Preliminary Gram Negative Rods 08/25/18 15:00 Aerobic Blood Culture - Preliminary Blood - Arm, Right Gram Negative Rods Anaerobic Blood Culture - Preliminary Gram Negative Rods 08/25/18 12:45 Aerobic Blood Culture - Preliminary Blood - Arm, Right Gram Negative Rods Anaerobic Blood Culture - Preliminary NO GROWTH AFTER 1 DAY 08/25/18 12:40 Aerobic Blood Culture - Preliminary Blood - Arm, Right Gram Negative Rods Anaerobic Blood Culture - Preliminary NO GROWTH AFTER 1 DAY 08/25/18 17:32 Urine Culture - Final Urine, Clean Catch (Esbl) Escherichia Coli Med Orders - Current: Current Medications Acetaminophen (Tylenol) 650 mg PO Q4H PRN PRN Reason: Pain (Mild 1-3)/fever Last Admin: 08/26/18 15:17 Dose: 650 mg Aspirin (Aspirin) 81 mg PO BEDTIME [facility] Last Admin: 08/26/18 20:35 Dose: 81 mg Atorvastatin Calcium (Lipitor) 40 mg PO BEDTIME [facility] Last Admin: 08/26/18 20:35 Dose: 40 mg Ciprofloxacin (Ciprofloxacin Hcl) 500 mg PO BID [facility] Last Admin: 08/27/18 10:47 Dose: 500 mg Cyanocobalamin (Vitamin B12) 2,500 mcg PO DAILY [facility] Last Admin: 08/27/18 09:25 Dose: 2,500 mcg Sodium Chloride (Normal Saline) 1,000 mls @ 100 mls/hr IV ASDIRECTED [facility] Last Admin: 08/25/18 18:32 Dose: 100 mls/hr Ibuprofen (Motrin) 600 mg PO Q6H PRN PRN Reason: Pain/Fever Last Admin: 08/27/18 10:47 Dose: 600 mg Latanoprost (Xalatan 0.005% Ophth Soln) 0 ml EYEBOTH BEDTIME [facility] Last Admin: 08/26/18 20:35 Dose: 1 drop Lisinopril (Prinivil) 10 mg PO DAILY [facility] Last Admin: 08/27/18 09:26 Dose: 10 mg Lorazepam (Ativan) 0.5 mg IVPUSH Q6H PRN PRN Reason: Nausea/Vomiting Last Admin: 08/25/18 19:51 Dose: 0.5 mg Magnesium Hydroxide (Milk Of Magnesia) 30 ml PO Q12H PRN PRN Reason: Constipation Ondansetron HCl (Zofran Odt) 4 mg PO Q6H PRN PRN Reason: Nausea able to take PO Ondansetron HCl (Zofran) 4 mg IV Q6H PRN PRN Reason: Nausea/Vomiting Last Admin: 08/26/18 17:34 Dose: 4 mg Pantoprazole Sodium (Protonix Granules) 40 mg PO ACBREAKFAST [facility] Last Admin: 08/27/18 09:25 Dose: 40 mg Paroxetine HCl (Paxil) 40 mg PO DAILY [facility] Last Admin: 08/27/18 09:25 Dose: 40 mg Senna/Docusate Sodium (Senna Plus) 1 tab PO BID PRN PRN Reason: Constipation Last Admin: 08/27/18 10:47 Dose: 1 tab Zolpidem Tartrate (Ambien) 5 mg PO BEDTIME [facility] Last Admin: 08/26/18 20:34 Dose: Not Given Discontinued Medications Sodium Chloride (Normal Saline) 1,000 mls @ 999 mls/hr IV ASDIRECTED [facility] Last Admin: 08/25/18 13:53 Dose: 999 mls/hr Sodium Chloride (Normal Saline) 1,000 mls @ 999 mls/hr IV ASDIRECTED [facility] Last Admin: 08/25/18 13:54 Dose: 999 mls/hr Ceftriaxone Sodium 1 gm/ (Sodium Chloride) 50 mls @ 100 mls/hr IV ONETIME ONE Stop: 08/25/18 13:38 Sodium Chloride (Normal Saline) 100 mls @ 3.5 mls/sec IV ONETIME ONE Stop: 08/25/18 13:12 Last Admin: 08/25/18 13:30 Dose: 3 mls/sec Ceftriaxone Sodium 1 gm/ (Sodium Chloride) 50 mls @ 100 mls/hr IV ONETIME ONE Stop: 08/25/18 13:59 Last Admin: 08/25/18 13:42 Dose: 100 mls/hr Ceftriaxone Sodium 1 gm/ (Sodium Chloride) 50 mls @ 100 mls/hr IV Q24H [facility] Last Admin: 08/26/18 13:47 Dose: 100 mls/hr Ibuprofen (Motrin) 400 mg PO ONETIME ONE Stop: 08/25/18 14:55 Last Admin: 08/25/18 14:59 Dose: 400 mg Ibuprofen (Motrin) 200 mg PO ONETIME ONE Stop: 08/25/18 14:57 Last Admin: 08/25/18 15:03 Dose: 200 mg Iopamidol (Isovue-300 (61%)) 100 ml IV . DIRECTED [facility] Iopamidol (Isovue-300) 100 ml IV ONETIME ONE Stop: 08/25/18 13:21 Last Admin: 08/25/18 13:30 Dose: 100 ml Latanoprost (Xalatan 0.005% Ophth Soln) 0 ml EYEBOTH BEDTIME [facility] Last Admin: 08/25/18 22:02 Dose: 1 drop Ondansetron HCl (Zofran) 4 mg IVPUSH ONETIME ONE Stop: 08/25/18 12:09 Last Admin: 08/25/18 13:52 Dose: 4 mg Pantoprazole Sodium (Protonix Granules) 20 mg PO ACBREAKFAST [facility] Last Admin: 08/26/18 10:53 Dose: Not Given Potassium Chloride (Klor-Con M20) 40 meq PO ONETIME ONE Stop: 08/25/18 17:44 Last Admin: 08/25/18 20:46 Dose: 40 meq Potassium Chloride (Klor-Con M20) Confirm Administered Dose 40 meq .ROUTE .STK- MED ONE Stop: 08/25/18 20:28 Last Admin: 08/25/18 20:46 Dose: Not Given Potassium Chloride (Klor-Con M20) 40 meq PO ONETIME ONE Stop: 08/26/18 09:31 Last Admin: 08/26/18 12:26 Dose: 40 meq Ranitidine HCl (Zantac) 150 mg PO BID [facility] Last Admin: 08/25/18 21:33 Dose: Not Given Sodium Chloride (Saline Flush) 10 ml FLUSH ONETIME ONE Stop: 08/25/18 13:12 Last Admin: 08/25/18 13:30 Dose: 10 ml - Exam Quality Assessment: No: Supplemental Oxygen General: Alert, Oriented, Cooperative, No Acute Distress Lungs: Normal Respiratory Effort GI/Abdominal Exam: Soft, No Distention Extremities: No Pedal Edema Psy/Mental Status: Alert, Normal Affect - Problem List & Annotations (1) Pyelonephritis SNOMED Code(s): 21999124 Code(s): N12 - TUBULO-INTERSTITIAL NEPHRITIS, NOT SPCF ACUTE OR CHRONIC Status: Acute Current Visit: Yes Annotation/Comment:: bilateral pyelo (2) History of hysterectomy SNOMED Code(s): 105738043, 208597766 Code(s): Z90.710 - ACQUIRED ABSENCE OF BOTH CERVIX AND UTERUS Status: Chronic Current Visit: Yes - Problem List Review Problem List Initiated/Reviewed/Updated: Yes - My Orders Last 24 Hours: My Active Orders 08/26/18 11:00 PARoxetine [Paxil] 40 mg PO DAILY 08/26/18 21:00 Latanoprost [Xalatan 0.005% Ophth Soln] 0 ml EYEBOTH BEDTIME 08/27/18 10:00 Ciprofloxacin [Ciprofloxacin HCl] 500 mg PO BID 08/27/18 11:37 Convert IV to Saline Lock [OM.PC] Routine 08/28/18 05:00 BASIC METABOLIC PANEL,BMP [CHEM] Timed CBC W/O DIFF,HEMOGRAM [HEME] Timed (1) - Plan Plan:: ASSESSMENT AND PLAN - Bilateral pyelonephritis - no evidence for sepsis at this time. Clinically doing better. Urine culture grew out ESBL Escherichia coli. Blood cultures are still pending but likely the same organism. Transition to oral ciprofloxacin today. Still having urinary symptoms and an increase in pain in the lower abdomen today. -Change antibiotics to ciprofloxacin, plan for 10 days of treatment -Follow-up cultures -Symptomatically management Status post hysterectomy - no obvious surgical complications and seems to be doing well from a surgical standpoint. Maintenance issues - - DVT prophylaxis - mechanical - GI prophylaxis - not indicated - Nutrition - regular Disposition - I would anticipate discharge home after the hospital stay, probably tomorrow if stable overnight Primary care physician - Gordon Chavez M.D.
[2018-08-27] MEDS: Acetaminophen 325 MG Tab PO PRN (14:52)
[2018-08-27] MEDS: Zolpidem 5 MG Tab PO SCH (20:37)
[2018-08-27] MEDS: Aspirin 81 MG Tab.Chew PO SCH (20:44)
[2018-08-27] MEDS: Latanoprost 0.005% Ophth Soln 2.5 ML Bottle EYEBOTH SCH (20:45)
[2018-08-27] MEDS: atorvaSTATin 20 MG Tab PO SCH (20:45)
[2018-08-28] MEDS: Ibuprofen 600 MG Tab PO PRN (08:26)
[2018-08-28] MEDS: PARoxetine 20 MG Tab PO SCH (08:27)
[2018-08-28] MEDS: Lisinopril 10 MG Tab PO SCH (08:27)
[2018-08-28] MEDS: Cyanocobalamin (Vitamin B12) 1,000 MCG Tab PO SCH (08:27)
[2018-08-28] MEDS: Ciprofloxacin 500 MG Tab PO SCH (08:27)
[2018-08-28] MEDS: Pantoprazole 40 MG Delayed-Release Granules 1 Packet PO SCH (08:33)
[2018-08-28 11:45] VITALS: BP 142/81
--- NOTE | 2018-08-28 13:07 | PCM.DCSUM1 ---
Discharge Summary - Hospital Course Brief History: Ms. Rojas is a 72-year-old woman who was admitted through the emergency department with nausea, vomiting, and low back pain, secondary to bilateral pyelonephritis. - Discharge Data Discharge Date: 08/28/18 Discharge Disposition: Home, Self-Care 01 Condition: Fair - Discharge Diagnosis/Problem(s) (1) History of hysterectomy SNOMED Code(s): 795057077, 794065459 ICD Code: Z90.710 - ACQUIRED ABSENCE OF BOTH CERVIX AND UTERUS Status: Chronic Current Visit: Yes (2) Pyelonephritis SNOMED Code(s): 17722707 ICD Code: N12 - TUBULO-INTERSTITIAL NEPHRITIS, NOT SPCF ACUTE OR CHRONIC Status: Acute Current Visit: Yes Problem Details: bilateral pyelo - Patient Summary/Data Hospital Course: Ms. rojas is a 72-year-old woman who presented to the emergency room with 5 days of intermittent nausea and vomiting as well as lower back pain. She reports having a hysterectomy completed about 10 days ago. The first 5 days went okay and then she started to develop nausea with episodes of vomiting mostly in the morning. Initially did better in the afternoon. Symptoms have progressed over the past 4 days with more frequent episodes of nausea and more vomiting. She has measured temperatures as high as 101 at home prior to today were was 103. She describes moderate achy lower back pain that started yesterday and worsened into this morning. She has been taking acetaminophen and ibuprofen with minor improvements in this pain. She has not have any significant pain remaining from her hysterectomy surgery. She noticed one episode of very mild dysuria but has not had increased frequency or urgency. She's had some episodes of shaking chills over the past couple of days but a more intense episode this morning and one in the emergency room as well. She has noticed a change in the odor of her urine. Workup in the emergency room was suggestive of bilateral pyelonephritis with a significantly abnormal urinalysis and abnormal enhancement of both kidneys on the CAT scan. She has received ceftriaxone. 2 sets of blood cultures and a urine culture have been set up. She has received 2 L of IV fluids. On admission she was continued on IV ceftriaxone. All of the blood cultures as well as urine culture grew out ESBL Escherichia coli. Although she did show improvement on the ceftriaxone despite documented resistance, she was transitioned to ciprofloxacin. She continued to improve over the next few days of hospitalization and will be discharged to home on ciprofloxacin 500 mg twice daily for an additional 9 days. Activity will be as tolerated and she will resume her usual diet. She will be scheduled for follow- up appointment with her primary care provider within one week. She already has follow-up appointment scheduled with her surgeon for August 30. - Patient Instructions Diet: Usual Diet as Tolerated Activity: As Tolerated Other/Special Instructions: Please schedule follow-up appointment with primary care provider within one week. - Discharge Plan *PRESCRIPTION DRUG MONITORING PROGRAM REVIEWED*: Not Applicable *COPY OF PRESCRIPTION DRUG MONITORING REPORT IN PATIENT SKYLA: Not Applicable Prescriptions/Med Rec: Ciprofloxacin [Ciprofloxacin HCl] 500 mg PO BID #18 tablet Lactobacillus Acidophilus [Acidophilus Lactobacilli] 1 each PO BID #60 capsule Home Medications: Home Meds Aspirin [T[place]ira Chewable Aspirin] 81 mg PO BEDTIME 06/14/13 [History] Bimatoprost [Lumigan 0.03% Ophth Soln] 1 drop EYEBOTH BEDTIME 06/14/13 [History] EPINEPHrine [Epipen 2-Rayray] 1 applic IM ONETIME PRN 06/14/13 [History] Glycopyrrolate 1 mg PO BID 06/14/13 [History] Lisinopril [Prinivil] 10 mg PO DAILY 06/14/13 [History] atorvaSTATin [Lipitor] 40 mg PO BEDTIME 06/14/13 [History] Cyanocobalamin (Vitamin B12) [Vitamin B12] 2,500 mcg SL DAILY 11/04/14 [History] Zolpidem Tartrate [Ambien] 5 mg PO BEDTIME 11/04/14 [History] Fluocinonide [Lidex 0.05% Crm] 30 gm TOP BID 05/18/16 [History] SUMAtriptan Succinate [Imitrex] 100 mg PO Q12H PRN 05/18/16 [History] Omeprazole 1 tab PO DAILY 08/25/18 [History] PARoxetine [Paxil] 40 mg PO DAILY 08/25/18 [History] Ciprofloxacin [Ciprofloxacin HCl] 500 mg PO BID #18 tablet 08/28/18 [Rx] Lactobacillus Acidophilus [Acidophilus Lactobacilli] 1 each PO BID #60 capsule 08/28/18 [Rx] Referrals: Gordon Rojo, [employer] [Primary Care Provider] - - Discharge Summary/Plan Comment DC Time >30 min.: No - Patient Data Vitals - Most Recent: Last Vital Signs Temp 97.9 F 08/28/18 11:44 Pulse 69 08/28/18 11:44 Resp 14 08/28/18 11:44 BP 142/81 H 08/28/18 11:44 Pulse Ox 97 08/28/18 11:44 Weight - Most Recent: 132 lb 2 oz I&O - Last 24 hours: Intake & Output 08/27/18 08/28/18 08/28/18 22:59 06:59 14:59 Intake Total 890 700 Output Total 550 2070 850 Balance 340 -2070 -150 Lab Results - Last 24 hrs: Laboratory Results - last 24 hr 08/28/18 08/28/18 Range/Units 05:53 05:53 WBC 8.4 (4.5-11.0) K/uL RBC 3.54 (3.30-5.50) M/uL Hgb 10.8 L (12.0-15.0) g/dL Hct 33.3 L (36.0-48.0) % MCV 94 (80-98) fL MCH 31 (27-31) pg MCHC 32 (32-36) % Plt Count 433 H (150-400) K/uL Sodium 143 (140-148) mmol/L Potassium 3.6 (3.6-5.2) mmol/L Chloride 107 (100-108) mmol/L Carbon Dioxide 30 (21-32) mmol/L Anion Gap 6.1 (5.0-14.0) mmol/L BUN 7 (7-18) mg/dL Creatinine 0.6 (0.6-1.0) mg/dL Est Cr Clr Drug Dosing 69.00 mL/min Estimated GFR (MDRD) > 60 (>60) Glucose 109 H (74-106) mg/dL Calcium 8.9 (8.5-10.1) mg/dL DEWAYNE Results - Last 24 hrs: Microbiology 08/25/18 12:45 Aerobic Blood Culture - Final Blood - Arm, Right (Esbl) Escherichia Coli Anaerobic Blood Culture - Final (Esbl) Escherichia Coli 08/25/18 12:40 Aerobic Blood Culture - Final Blood - Arm, Right (Esbl) Escherichia Coli Anaerobic Blood Culture - Final (Esbl) Escherichia Coli 08/25/18 15:10 Aerobic Blood Culture - Final Blood - Arm, Right (Esbl) Escherichia Coli Anaerobic Blood Culture - Final (Esbl) Escherichia Coli 08/25/18 15:00 Aerobic Blood Culture - Final Blood - Arm, Right (Esbl) Escherichia Coli Anaerobic Blood Culture - Final (Esbl) Escherichia Coli Med Orders - Current: Current Medications Acetaminophen (Tylenol) 650 mg PO Q4H PRN PRN Reason: Pain (Mild 1-3)/fever Last Admin: 08/27/18 14:52 Dose: 650 mg Aspirin (Aspirin) 81 mg PO BEDTIME [facility] [place] Last Admin: 08/27/18 20:44 Dose: 81 mg Atorvastatin Calcium (Lipitor) 40 mg PO BEDTIME [facility] [place] Last Admin: 08/27/18 20:45 Dose: 40 mg Ciprofloxacin (Ciprofloxacin Hcl) 500 mg PO BID [facility] [place] Last Admin: 08/28/18 08:27 Dose: 500 mg Cyanocobalamin (Vitamin B12) 2,500 mcg PO DAILY [facility] [place] Last Admin: 08/28/18 08:27 Dose: 2,500 mcg Ibuprofen (Motrin) 600 mg PO Q6H PRN PRN Reason: Pain/Fever Last Admin: 08/28/18 08:26 Dose: 600 mg Latanoprost (Xalatan 0.005% Ophth Soln) 0 ml EYEBOTH BEDTIME [facility] [place] Last Admin: 08/27/18 20:45 Dose: 1 drop Lisinopril (Prinivil) 10 mg PO DAILY [facility] [place] Last Admin: 08/28/18 08:27 Dose: 10 mg Lorazepam (Ativan) 0.5 mg IVPUSH Q6H PRN PRN Reason: Nausea/Vomiting Last Admin: 08/25/18 19:51 Dose: 0.5 mg Magnesium Hydroxide (Milk Of Magnesia) 30 ml PO Q12H PRN PRN Reason: Constipation Ondansetron HCl (Zofran Odt) 4 mg PO Q6H PRN PRN Reason: Nausea able to take PO Ondansetron HCl (Zofran) 4 mg IV Q6H PRN PRN Reason: Nausea/Vomiting Last Admin: 08/26/18 17:34 Dose: 4 mg Pantoprazole Sodium (Protonix Granules) 40 mg PO ACBREAKFAST [facility] [place] Last Admin: 08/28/18 08:33 Dose: 40 mg Paroxetine HCl (Paxil) 40 mg PO DAILY [facility] [place] Last Admin: 08/28/18 08:27 Dose: 40 mg Senna/Docusate Sodium (Senna Plus) 1 tab PO BID PRN PRN Reason: Constipation Last Admin: 08/27/18 10:47 Dose: 1 tab Zolpidem Tartrate (Ambien) 5 mg PO BEDTIME [facility] [place] Last Admin: 08/27/18 20:37 Dose: Not Given Discontinued Medications Sodium Chloride (Normal Saline) 1,000 mls @ 999 mls/hr IV ASDIRECTED [facility] [place] Last Admin: 08/25/18 13:53 Dose: 999 mls/hr Sodium Chloride (Normal Saline) 1,000 mls @ 999 mls/hr IV ASDIRECTED [facility] [place] Last Admin: 08/25/18 13:54 Dose: 999 mls/hr Ceftriaxone Sodium 1 gm/ (Sodium Chloride) 50 mls @ 100 mls/hr IV ONETIME ONE Stop: 08/25/18 13:38 Sodium Chloride (Normal Saline) 100 mls @ 3.5 mls/sec IV ONETIME ONE Stop: 08/25/18 13:12 Last Admin: 08/25/18 13:30 Dose: 3 mls/sec Ceftriaxone Sodium 1 gm/ (Sodium Chloride) 50 mls @ 100 mls/hr IV ONETIME ONE Stop: 08/25/18 13:59 Last Admin: 08/25/18 13:42 Dose: 100 mls/hr Ceftriaxone Sodium 1 gm/ (Sodium Chloride) 50 mls @ 100 mls/hr IV Q24H [facility] [place] Last Admin: 08/26/18 13:47 Dose: 100 mls/hr Sodium Chloride (Normal Saline) 1,000 mls @ 100 mls/hr IV ASDIRECTED [facility] [place] Last Admin: 08/25/18 18:32 Dose: 100 mls/hr Ibuprofen (Motrin) 400 mg PO ONETIME ONE Stop: 08/25/18 14:55 Last Admin: 08/25/18 14:59 Dose: 400 mg Ibuprofen (Motrin) 200 mg PO ONETIME ONE Stop: 08/25/18 14:57 Last Admin: 08/25/18 15:03 Dose: 200 mg Iopamidol (Isovue-300 (61%)) 100 ml IV . DIRECTED [facility] [place] Iopamidol (Isovue-300) 100 ml IV ONETIME ONE Stop: 08/25/18 13:21 Last Admin: 08/25/18 13:30 Dose: 100 ml Latanoprost (Xalatan 0.005% Ophth Soln) 0 ml EYEBOTH BEDTIME [facility] [place] Last Admin: 08/25/18 22:02 Dose: 1 drop Ondansetron HCl (Zofran) 4 mg IVPUSH ONETIME ONE Stop: 08/25/18 12:09 Last Admin: 08/25/18 13:52 Dose: 4 mg Pantoprazole Sodium (Protonix Granules) 20 mg PO ACBREAKFAST [facility] [place] Last Admin: 08/26/18 10:53 Dose: Not Given Potassium Chloride (Klor-Con M20) 40 meq PO ONETIME ONE Stop: 08/25/18 17:44 Last Admin: 08/25/18 20:46 Dose: 40 meq Potassium Chloride (Klor-Con M20) Confirm Administered Dose 40 meq .ROUTE .STK- MED ONE Stop: 08/25/18 20:28 Last Admin: 08/25/18 20:46 Dose: Not Given Potassium Chloride (Klor-Con M20) 40 meq PO ONETIME ONE Stop: 08/26/18 09:31 Last Admin: 08/26/18 12:26 Dose: 40 meq Ranitidine HCl (Zantac) 150 mg PO BID [facility] [place] Last Admin: 08/25/18 21:33 Dose: Not Given Sodium Chloride (Saline Flush) 10 ml FLUSH ONETIME ONE Stop: 08/25/18 13:12 Last Admin: 08/25/18 13:30 Dose: 10 ml - Exam Quality Assessment: Reports: DVT Prophylaxis General: Reports: Alert, Oriented, Cooperative, No Acute Distress Lungs: Reports: Clear to Auscultation, Normal Respiratory Effort Cardiovascular: Reports: Regular Rate, Regular Rhythm GI/Abdominal Exam: Soft, Non-Tender, No Organomegaly, No Distention Back Exam: Reports: Normal Inspection, Full Range of Motion
== END 2018-08-28 13:51 | disposition home or self-care (01) | DRG 690 ==
LOC: JP.ED 11:11 → JP.MS 17:04
PROVIDERS: ADMIT Internal Medicine; ATTEND Hospitalist
DX: N15.9 Renal tubulo-interstitial disease, unspecified (principal); N12 Tubulo-interstitial nephritis, not specified as acute or chronic; B96.20 Unspecified Escherichia coli [E. coli] as the cause of diseases classified elsewhere; Z79.02 Long term (current) use of antithrombotics/antiplatelets; Z79.82 Long term (current) use of aspirin; R11.2 Nausea with vomiting, unspecified; R50.9 Fever, unspecified; R53.1 Weakness; Z79.899 Other long term (current) drug therapy; Z90.710 Acquired absence of both cervix and uterus
CPT/HCPCS: 36415; 71045; 74177; 80053; 81001; 83605; 85025; 87040 ×4; 87077 ×3; 87088; 87186 ×2; 96361; 96365; 96366; 96375; 99285; A9270 ×2; J0696; J2405; J7030 ×3; J7050; Q9967; 80048; 85027; 87086; J2060

== ENCOUNTER 2021-06-02 07:27 | Emergency (ER) | payer MEDICARE ==
[2021-06-02 07:44] VITALS: BP 164/74; PULSE 58
[2021-06-02] MEDS ORDERED: Ketorolac 30 MG/ML SDV IM ONE (08:04)
[2021-06-02] MEDS ORDERED: fentaNYL 100 MCG/2 ML SDV IM ONE (09:22)
== END 2021-06-02 11:50 | disposition home or self-care (01) ==
LOC: JP.ED 07:27
DX: M48.061 Spinal stenosis, lumbar region without neurogenic claudication (principal); I10 Essential (primary) hypertension; K21.9 Gastro-esophageal reflux disease without esophagitis; Z88.1 Allergy status to other antibiotic agents; Z79.899 Other long term (current) drug therapy
CPT/HCPCS: 36415; 72100; 72100-26; 72131; 72131-26; 80053; 85025; 85651; 96372; 99283; 99284-25; J1885; J3010

== ENCOUNTER 2022-11-11 09:29 | Emergency (ER) | payer MEDICARE ==
[2022-11-11] MEDS ORDERED: Sodium Chloride 0.9% 10 ML Syringe FLUSH PRN (10:17)
[2022-11-11 10:24] LABS: BASOPHILS ABSOLUTE AUTO 0.04 K/uL (0.00-0.10); BASOPHILS PERCENT AUTO 0.5 % (0.1-1.3); EOSINOPHILS ABSOLUTE AUTO 0.15 K/uL (0.00-0.40); EOSINOPHILS PERCENT AUTO 1.8 % (0.0-5.4); HEMATOCRIT 44.8 % (34.3-46.0); HEMOGLOBIN 15.3 g/dL (11.2-15.5); IMMATURE GRAN ABSOLUTE AUTO 0.02 K/uL (0.00-0.23); IMMATURE GRAN PERCENT AUTO 0.2 % (0.0-0.7); LYMPHOCYTES ABSOLUTE AUTO 1.32 K/uL (0.8-3.3); LYMPHOCYTES PERCENT AUTO 15.4 % (11.4-47.7); MEAN CORPUSCULAR HEMOGLOBIN 31.9 pg (31.6-35.5); MEAN CORPUSCULAR HGB CONC 34.2 g/dL (31.6-35.5); MEAN CORPUSCULAR VOLUME 93.5 fL (81.4-99.0); MONOCYTES ABSOLUTE AUTO 1.09 K/uL (0.20-0.90); MONOCYTES PERCENT AUTO 12.7 % (3.3-12.6); NEUTROPHILS ABSOLUTE AUTO 5.93 K/uL (1.0-7.6); NEUTROPHILS PERCENT AUTO 69.4 % (40.0-78.1); PLATELET COUNT,PLT 257 K/uL (130-375); RED BLOOD CELL COUNT 4.79 M/uL (3.77-5.24); WHITE BLOOD CELL COUNT,WBC 8.6 K/uL (3.2-11.0)
[2022-11-11 10:36] LABS: PROTHROMBIN TIME 10.3 sec (9.2-10.6); PTT,PARTIAL THROMBOPLSTIN TIME 26.1 sec (21.8-27.3)
[2022-11-11 10:37] LABS: A/G RATIO 1.1 (1.2-2.2); ALANINE AMINOTRANSFERASE,ALT 43 U/L (12-78); ALBUMIN 3.3 g/dL (3.4-5.0); ALKALINE PHOSPHATASE 117 U/L (46-116); ASPARTATE AMNIOTRANSFERASE,AST 28 U/L (15-37); BILIRUBIN TOTAL 0.5 mg/dL (0.2-1.0); BLOOD UREA NITROGEN,BUN 10 mg/dL (7-18); C-REACTIVE PROTEIN 0.48 mg/dL (0.0-0.3); CALCIUM 8.9 mg/dL (8.5-10.1); CARBON DIOXIDE,CO2 27 mmol/L (21-32); CHLORIDE,CL 101 mmol/L (100-108); CREATININE 0.6 mg/dL (0.6-1.0); EST CRCL DRUG DOSING (CG) 64.07 mL/min; ESTIMATED GFR 94 mL/min (>60); GLUCOSE RANDOM 114 mg/dL (74-106); PROTEIN TOTAL,TP 6.3 g/dL (6.4-8.2); SODIUM,NA 136 mmol/L (140-148)
[2022-11-11] MEDS ORDERED: HYDROmorphone 0.5 MG/0.5 ML Syringe IVPUSH ONE (10:49)
[2022-11-11] MEDS ORDERED: Naloxone 0.4 MG/ML SDV IVPUSH PRN (10:49)
[2022-11-11] MEDS ORDERED: HYDROmorphone 0.5 MG/0.5 ML Syringe IVPUSH PRN (11:29)
[2022-11-11 13:51] LABS: HEMATOCRIT 45.4 % (34.3-46.0); HEMOGLOBIN 15.7 g/dL (11.2-15.5)
[2022-11-11] MEDS ORDERED: Acetaminophen/HYDROcodone 325-5 MG Tab PO ONE (14:23)
[2022-11-11] MEDS ORDERED: Ondansetron 4 MG/2 ML SDV IVPUSH ONE (15:26)
[2022-11-11 16:19] VITALS: BP 152/92; PULSE 74
== END 2022-11-11 16:09 ==
LOC: JP.ED 09:29
DX: R10.84 Generalized abdominal pain (principal); R19.7 Diarrhea, unspecified; I10 Essential (primary) hypertension; K21.9 Gastro-esophageal reflux disease without esophagitis; Z86.16 Personal history of COVID-19; Z88.1 Allergy status to other antibiotic agents; Z79.899 Other long term (current) drug therapy; Z79.82 Long term (current) use of aspirin
CPT/HCPCS: 36415; 80053; 83605; 85014; 85018; 85025; 85610; 85730; 86140; 86850; 86900; 86901; 87493; 96374; 96375; 96376; 99284; J1170; J2405; J3490

== ENCOUNTER 2024-09-14 13:50 | Emergency (ER) | payer MEDICARE ==
[2024-09-14 14:20] LABS: BASOPHILS ABSOLUTE AUTO 0.05 K/uL (0.00-0.10); BASOPHILS PERCENT AUTO 1.0 % (0.1-1.3); EOSINOPHILS ABSOLUTE AUTO 0.19 K/uL (0.00-0.40); EOSINOPHILS PERCENT AUTO 4.0 % (0.0-5.4); IMMATURE GRAN PERCENT AUTO 0.2 % (0.0-0.7); LYMPHOCYTES ABSOLUTE AUTO 1.25 K/uL (0.8-3.3); LYMPHOCYTES PERCENT AUTO 26.2 % (11.4-47.7); MONOCYTES ABSOLUTE AUTO 0.50 K/uL (0.20-0.90); MONOCYTES PERCENT AUTO 10.5 % (3.3-12.6); NEUTROPHILS ABSOLUTE AUTO 2.78 K/uL (1.0-7.6); NEUTROPHILS PERCENT AUTO 58.1 % (40.0-78.1); PLATELET COUNT,PLT 242 K/uL (130-375); RED BLOOD CELL COUNT 4.47 M/uL (3.77-5.24); WHITE BLOOD CELL COUNT,WBC 4.8 K/uL (3.2-11.0)
[2024-09-14] MEDS ORDERED: Sodium Chloride 0.9% 10 ML Syringe FLUSH PRN (14:20)
[2024-09-14 14:24] LABS: IMMATURE GRAN ABSOLUTE AUTO 0.01 K/uL (0.00-0.23)
[2024-09-14] MEDS: hydrALAZINE 20 MG/ML SDV IVPUSH ONE (14:38)
[2024-09-14 14:48] LABS: BLOOD UREA NITROGEN,BUN 14.0 mg/dL (7-18); CARBON DIOXIDE,CO2 29.0 mmol/L (21-32); CHLORIDE,CL 102.0 mmol/L (100-108); CREATININE 0.6 mg/dL (0.6-1.0); EST CRCL DRUG DOSING (CG) 63.09 mL/min; ESTIMATED GFR 93.0 mL/min (>60); GLUCOSE RANDOM 110.0 mg/dL (74-106); POTASSIUM,K 3.7 mmol/L (3.6-5.2); SODIUM,NA 141.0 mmol/L (140-148); TROPONIN I HIGH SENSITIVITY 6.1 pg/mL (<=60.3)
[2024-09-14 16:15] VITALS: BP 169/97
[2024-09-14 16:59] VITALS: PULSE 83
== END 2024-09-14 17:06 | disposition home or self-care (01) ==
LOC: JP.ED 13:50
DX: R07.9 Chest pain, unspecified (principal); I10 Essential (primary) hypertension; K21.9 Gastro-esophageal reflux disease without esophagitis; Z88.1 Allergy status to other antibiotic agents; Z79.82 Long term (current) use of aspirin; Z79.899 Other long term (current) drug therapy; Z90.49 Acquired absence of other specified parts of digestive tract; Z90.710 Acquired absence of both cervix and uterus
CPT/HCPCS: 36415; 71046; 80048; 84484; 85025; 93005; 96374; 99285; A9270; J0360